=== PATIENT | female | born 1980 | race Caucasian/White ===

== ENCOUNTER 2017-09-17 22:24 | Emergency (ER) | payer OTHER ==
[2017-09-17 22:41] VITALS: BP 105/60
--- NOTE | 2017-09-17 22:59 | ER Document Report ---
HPI - HPI Pain Level: 3 Notes: Patient is a 36-year-old female with no significant past medical history who presents to the ED complaining of right posterior hand bruising and swelling status post injury 4 days ago. Patient states that her fifth digit was bent/ hyperextended which caused immediate pain and a "pop." Patient states that since then she has noticed bruising and swelling. Patient does have soreness along the medial posterior aspect of the hand posteriorly. 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 She has no associated numbness or tingling. The pain radiates down into her wrist on occasion. She denies any drug allergies. Patient does not want any Tylenol or Motrin today. Denies any headache, fever, URI, sore throat, chest pain, palpitations, syncope, cough, shortness of breath , wheeze, dyspnea, abdominal pain, nausea/vomiting/diarrhea, urinary retention, dysuria, hematuria, or rash. - ROS Systems Reviewed and Negative: Yes All other systems reviewed and negative Past Medical History - Social History Smoking Status: Never Smoker Family History: Reviewed & Not Pertinent Vertical Provider Document - CONSTITUTIONAL Agree With Documented VS: Yes Notes: PHYSICAL EXAMINATION: GENERAL: Well-appearing, well-nourished and in no acute distress. LUNGS: Breath sounds clear to auscultation bilaterally and equal. No wheezes rales or rhonchi. HEART: Regular rate and rhythm without murmurs, rubs, gallops. Musculoskeletal: Rt hand: + ecchymosis and swelling to the medioposterior hand. LROM to passive/active flexion/ext of the 3-5th digits at the MCP joint. Strength 4+/5. N/V intact distal. + tenderness to palp of the 4-5th MCP joints and the metacarpals. No scaphoid tenderness or distal forearm tenderness. Extremities: No cyanosis, clubbing, or edema b/l. Peripheral pulses 2+. Capillary refill less than 3 seconds. NEUROLOGICAL: Normal speech, normal gait. Normal sensory, motor exams PSYCH: Normal mood, normal affect. SKIN: Warm, Dry, normal turgor, no rashes or lesions noted. - INFECTION CONTROL TRAVEL OUTSIDE OF THE [place] IN LAST 30 DAYS: No Course - Re-evaluation Re-evalutation: 09/17/17 23:30 Patient is an afebrile, well-hydrated, 36-year-old female who presents to the ED with 5th metacarpal fracture (minimally displaced comminuted fx) of the right hand. Vitals are acceptable. PE is otherwise unremarkable for any neurovascular compromise, obvious tendon/ligament rupture, open fracture/ dislocation, septic joint. See x-ray result. And was immobilized using an ulnar gutter splint. Patient declined any pain medication at this time. Ice pack was provided. Recommend conservative measures for symptoms. Call orthopedics tomorrow to schedule an appointment for further evaluation and management. Recheck with your PCM in 1 week as well. Return to the ED with any worsening/concerning symptoms otherwise as reviewed discharge. Patient is in agreement. - Vital Signs Vital signs: Temp Pulse Resp BP Pulse Ox 98.7 F 83 18 105/60 97 09/17/17 22:39 09/17/17 22:39 09/17/17 22:39 09/17/17 22:39 09/17/17 22:39 Procedures - Immobilization Right Hand Time completed: 23:30 Pre-Proc Neuro Vasc Exam: Normal Immobilizer type: Ulnar - ulnar gutter Performed by: PCT Post-Proc Neuro Vasc Exam: Normal, Unchanged from pre-exam Discharge - Discharge Clinical Impression: Closed fracture of 5th metacarpal Qualifiers: Encounter type: initial encounter Metacarpal location: shaft Fracture alignment : displaced Laterality: right Qualified Code(s): S62.326A - Displaced fracture of shaft of fifth metacarpal bone, right hand, initial encounter for closed fracture Condition: Stable Instructions: Fractured Fifth Metacarpal ([facility]), Splint Precautions ([facility]) Additional Instructions: Rest, Ice, Compression, Elevation Use splint as directed Tylenol/ibuprofen as needed F/u with your PCP in 1 week for a recheck Schedule a consult with orthopedics for further evaluation and management, call tomorrow to schedule Return to the ED with any worsening symptoms and/or development of fever, headache, chest pain, palpitations, syncope, shortness of breath, trouble breathing, abdominal pain, n/v/d, muscle weakness/paralysis, numbness/tingling, swelling, redness, or other worsening symptoms that are concerning to you. Referrals: [facility] ([email or web address] [Provider Group] - Follow up in 3-5 days
--- NOTE | 2017-09-17 23:19 | RADIOLOGY REPORT (SQ) ---
EXAM DESCRIPTION: HAND RIGHT 3 VIEWS COMPLETED DATE/TIME: 09/17/2017 10:45 pm REASON FOR STUDY: rt hand pain, 5th digit primary COMPARISON: None. EXAM PARAMETERS: NUMBER OF VIEWS: Three views. TECHNIQUE: AP, lateral and oblique radiographic images acquired of the right hand. LIMITATIONS: None. FINDINGS: MINERALIZATION: Normal. BONES: Minimally displaced comminuted fracture of the 5th metacarpal diaphysis. No other fracture or dislocation. JOINTS: No effusions. SOFT TISSUES: No soft tissue swelling. No foreign body. OTHER: No other significant finding. IMPRESSION: Minimally displaced comminuted fracture of the 5th metacarpal diaphysis. No other fract ure or dislocation. TECHNICAL DOCUMENTATION: JOB ID: [id number] [id number] 2010 [employer]- All Rights Reserved Reading location - IP/workstation name: [email or web address]
== END 2017-09-17 23:45 | disposition home or self-care (01) ==
LOC: ER 22:24
PROC: 2W3EX1Z Immobilization of Right Hand using Splint (ICD-10-PCS; principal; 2017-09-17)
DX: S62.326A Displaced fracture of shaft of fifth metacarpal bone, right hand, initial encounter for closed fracture (principal); X50.0XXA Overexertion from strenuous movement or load, initial encounter
CPT/HCPCS: 99283